=== PATIENT | male | born 1955 | race Caucasian/White ===

== ENCOUNTER 2018-10-21 15:31 | Observation (INO) | payer MEDICARE, OTHER | END 2018-10-23 09:45 | disposition home or self-care (01) | LOC: MED SURG 15:31 ==

== ENCOUNTER 2018-11-13 08:30 | Emergency (ER) | payer MEDICARE, OTHER ==
[2018-11-13] MEDS ORDERED: DUONEB 0.5-3 MG/3 ml Neb IH ONE ×2 (08:41→09:03)
--- NOTE | 2018-11-13 08:48 | ERPHSYRPT ---
- History of Present Illness Time Seen by Provider: 11/13/18 08:43 Source: patient Exam Limitations: no limitations Physician History: 63-year-old white male with history of small cell carcinoma of the lung, pancytopenia secondary to antibiotic plastic, chemotherapy and COPD. Patient arrives with complaint of shortness of breath associated with chest tightness worse with breathing symptoms since 6:30 this morning. He states he has not had any nausea sinus no fevers no vomiting. 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 Past surgical history includes facial reconstruction, splenectomy, scab wound to the left arm Social history patient states he drinks a fifth of alcohol a day He admits to tobacco use He denies illicit drug use Timing/Duration: today (66:30 AM) Activities at Onset: rest Severity of Dyspnea-Max: moderate Severity of Dyspnea-Current: moderate Possible Cause: occasional episodes Associated Symptoms: constant, cough (ooccasional cough), chest pain/discomfort (tightness in chest), wheezing, heart racing, tightness, No intermittent, No anxiety, No edema, No fever, No insomnia, No loss of appetite, No lightheadedness, No weakness, No ankle swelling, No chills, No hemoptysis, No calf pain, No dizziness, No heaviness, No lightheadedness, No leg swelling, No muscle spasms feet, No muscle spasms hands, No painful breathing, No productive cough, No sweating, No tingling face International travel in last 2 weeks: No Allergies/Adverse Reactions: No Known Drug Allergies Allergy (Unverified 10/21/18 16:44) Home Medications: Famotidine [Pepcid] 40 mg PO [id number] PRN 10/21/18 [History] Olanzapine 5 mg PO DAILY 10/21/18 [History] Potassium Chloride 10 Meq Tab* [Klor Con 10 MEQ] 20 meq PO DAILY 10/21/18 [ History] - Review of Systems Constitutional: No Fever, No Chills Eyes: No Symptoms Ears, Nose, & Throat: No Symptoms Respiratory: Cough, Dyspnea, Wheezing Cardiac: Chest Pain Abdominal/Gastrointestinal: No Abdominal Pain, No Nausea, No Vomiting, No Diarrhea Genitourinary Symptoms: No Dysuria Musculoskeletal: No Back Pain, No Neck Pain Skin: No Rash Neurological: No Dizziness, No Focal Weakness, No Sensory Changes Psychological: No Symptoms Endocrine: No Symptoms All Other Systems: Reviewed and Negative - Past Medical History Pertinent Past Medical History: Yes Neurological History: No Pertinent History ENT History: No Pertinent History Cardiac History: No Pertinent History Respiratory History: COPD, Lung Cancer Endocrine Medical History: No Pertinent History Musculoskeletal History: Arthritis, Fractures, Osteoarthritis GI Medical History: Hernia History: No Pertinent History Psycho-Social History: Anxiety, Depression, Other Male Reproductive Disorders: No Pertinent History Other Medical History: PTSD - Past Surgical History Past Surgical History: Yes Neuro Surgical History: No Pertinent History Cardiac: No Pertinent History Respiratory: No Pertinent History Gastrointestinal: Other Genitourinary: No Pertinent History Musculoskeletal: Orthopedic Surgery Male Surgical History: No Pertinent History Other Surgical History: maxillofacial reconstruction; splenectomy; left arm surgery - Social History Smoking Status: Current every day smoker How long have you smoked: "40 years" Exposure to second hand smoke: Yes Drug Use: marijuana - Nursing Vital Signs Nursing Vital Signs: Initial Vital Signs Temperature 97.6 F 11/13/18 08:31 Pulse Rate 116 H 11/13/18 08:31 Respiratory Rate 20 11/13/18 08:31 Blood Pressure 134/108 11/13/18 08:31 O2 Sat by Pulse Oximetry 91 L 11/13/18 08:31 Pain Scale Pain Intensity 5 - Physical Exam General Appearance: mild distress, alert Eye Exam: PERRL/EOMI Ears, Nose, Throat Exam: hearing grossly normal, normal ENT inspection, normal pharynx, No abnormal TM (R), No abnormal TM (L), No sinus pain/drainage, No hearing decreased, No nasal congestion, No pharyngeal erythema, No tonsillar exudate, No tonsillar swelling Neck Exam: normal inspection, supple Respiratory Exam: diminished breath sounds, wheezing (few wheezes) Cardiovascular/Chest Exam: normal heart sounds, tachycardia Abdominal/Gastrointestinal Exam: soft, No tenderness, No distention, No mass Extremity Exam: non-tender, normal range of motion, normal inspection, no calf tenderness, no pedal edema Peripheral Pulses Exam: dorsalis-pedis (R): 2+, dorsalis-pedis (L): 2+ Neurologic Exam: alert, oriented x 3, cooperative, knitting tester II-XII nml as tested, sensation nml, No motor deficits Skin Exam: normal color, warm, No dry SpO2 Interpretation: normal - Course Nursing assessment & vital signs reviewed: Yes EKG Interpreted by Me: RATE (115 bpm), Sinus Tach, NORMAL AXIS, Other (EKG: Sinus tachycardia, 115 beats per minute, normal axis, no acute ST or T wave changes) - Radiology Exams Chest X-ray Interpretation: Discussed w/ radiologist (chest x-ray: Impression right mid to lower perihilar interstitial alveolar opacities presumed related to known carcinoma. Remaining heart and lungs unremarkable. Bony thorax intact.) - CT Exams Chest CT Interpretation: Discussed w/radiologist (cchest x-ray: Impression: 1. New tiny nonoccluding right lung pulmonary emboli. 2. Grossly stable right perihilar/infrahilar opacity is in right lower lobe masslike opacity presumed related to known small cell carcinoma. Slightly diminished right effusion), Tele-radiologist Report ( this is a 5 at that is), appendicitis Ordered Tests: Active Orders 24 hr Category Date Time Status EKG-ER Only STAT Care 11/13/18 08:35 Active IV Insertion STAT Care 11/13/18 08:35 Active Pulse Oximetry (ED) STAT Care 11/13/18 08:35 Active CHEST 1 VIEW (PORTABLE) Stat Exams 11/13/18 08:35 Completed CHEST WITH CONTRAST [CT] Stat Exams 11/13/18 09:33 Completed BLOOD CULTURE Stat Lab 11/13/18 08:57 Received CBC W DIFF Stat Lab 11/13/18 08:45 Completed CMP Stat Lab 11/13/18 08:45 Completed CULTURE,SPUTUM Stat Lab 11/13/18 08:41 Uncollected D-DIMER QUANTITATION Stat Lab 11/13/18 08:45 Completed Lactic Acid Stat Lab 11/13/18 08:41 Completed Manual Differential NC Stat Lab 11/13/18 08:45 Completed NT PRO BNP Stat Lab 11/13/18 08:45 Completed PROTIME WITH INR Stat Lab 11/13/18 08:45 Completed PTT Stat Lab 11/13/18 08:45 Completed TROPONIN Q3H Lab 11/13/18 08:45 Completed TROPONIN Q3H Lab 11/13/18 11:45 Ordered TROPONIN Q3H Lab 11/13/18 14:45 Ordered TROPONIN Q3H Lab 11/13/18 17:45 Ordered TROPONIN Q3H Lab 11/13/18 20:45 Ordered VENOUS BLOOD GAS Stat Lab 11/13/18 08:41 Completed Peak Expiratory Flow Rate ONCE RT 11/13/18 09:10 Completed Respiratory Therapy Assessment DAILY RT 11/13/18 09:09 Completed Medication Summary Generic Name Dose Route Start Last Admin Trade Name Freq PRN Reason Stop Dose Admin Sodium Chloride 1,000 mls @ 100 mls/hr 11/13/18 09:00 11/13/18 08:56 Sodium Chloride 0.9% 1000 Ml IV 12/13/18 08:59 100 mls/hr .Q10H YOKO Administration Ceftriaxone Sodium/Dextrose 1 g in 50 mls @ 100 mls/hr 11/13/18 10:55 11:01 Rocephin 1 Gm-D5w 50 Ml Bag IV 11/13/18 11:24 100 mls/hr STAT STA 100 mls/hr Administration Discontinued Medications Generic Name Dose Route Start Last Admin Trade Name Freq PRN Reason Stop Dose Admin Albuterol/Ipratropium 3 ml 11/13/18 08:41 11/13/18 09:08 Duoneb 0.5-3 Mg/3 Ml Neb IH 11/13/18 08:42 3 ml STAT ONE Administration Albuterol/Ipratropium Confirm 11/13/18 09:03 Duoneb 0.5-3 Mg/3 Ml Neb Administered 11/13/18 09:04 Dose 3 ml IH .STK-MED ONE Aspirin 324 mg 11/13/18 09:32 11/13/18 09:40 Baby Aspirin 81 Mg Chew PO 11/13/18 09:33 324 mg STAT ONE Administration Aspirin Confirm 11/13/18 09:40 Baby Aspirin 81 Mg Chew Administered 11/13/18 09:41 Dose 324 mg .ROUTE .STK-MED ONE Ceftriaxone Sodium/Dextrose Confirm 11/13/18 10:57 Rocephin 1 Gm-D5w 50 Ml Bag Administered 11/13/18 10:58 Dose 1 g in 50 mls @ ud IV .STK-MED ONE Lab/Rad Data: Laboratory Result Diagrams 11/13/18 08:45 11/13/18 08:45 Laboratory Results 11/13/18 11/13/18 11/13/18 Range/Units 08:45 08:45 08:45 WBC (4.0-10.5) K/mm3 RBC (4.1-5.6) M/mm3 Hgb (12.5-18.0) gm/dl Hct (42-50) % MCV (78-100) fl MCH (26-32) pg MCHC (32-36) g/dl RDW (11.5-14.0) % Plt Count (150-450) K/mm3 MPV (6-9.5) fl Segmented Neutrophils (36.-66.) % Lymphocytes (Manual) (24-44) % Monocytes (Manual) (0.0-12.0) % Atypical Lymphocytes % Platelet Estimate (NORMAL) RBC Morphology Polychromasia Poikilocytosis Anisocytosis Garcia-Cos Cob Bodies PT 12.7 (8.83-12.87) SECONDS INR 1.12 (0.8-3.0) APTT 33.8 (24.1-36.1) SECONDS D-Dimer 6815 H* (215-500) ng/mL pO2/FiO2 Ratio % VBG pH (7.32-7.42) VBG pCO2 at Pat Temp (42-55) mm/Hg VBG pO2 at Pat Temp (25-40) mm/Hg VBG HCO3 (22-28) meq/L VBG O2 Sat (Joselin) (95-100) VBG Base Excess (-2.0-2.0) VBG Hemoglobin VBG Carboxyhemoglobin (0.0-6.9) % T HGB POC Potassium (3.5-5.1) Sodium 126 L (137-145) mmol/L Potassium 3.2 L (3.5-5.1) mmol/L Chloride 86 L (98-107) mmol/L Carbon Dioxide 28 (22-30) mmol/L Anion Gap 15.8 H (5-15) MEQ/L BUN 11 (9-20) mg/dL Creatinine 0.73 (0.66-1.25) mg/dL Estimated GFR > 60.0 ML/MIN Glucose 113 H (74-106) mg/dL Lactic Acid (0.4-2.0) Calcium 9.3 (8.4-10.2) mg/dL Total Bilirubin 1.50 H (0.2-1.3) mg/dL AST 70 H (17-59) U/L ALT 26 (0-50) U/L Alkaline Phosphatase 128 H (38-126) U/L Troponin I 0.090 H* (0.000-0.034) ng/mL NT-Pro-B Natriuret Pep 915 H (0-900) pg/mL Serum Total Protein 7.5 (6.3-8.2) g/dL Albumin 3.9 (3.5-5.0) g/dL 11/13/18 11/13/18 Range/Units 08:45 08:41 WBC 9.2 (4.0-10.5) K/mm3 RBC 3.23 L (4.1-5.6) M/mm3 Hgb 13.1 (12.5-18.0) gm/dl Hct 35.3 L (42-50) % MCV 109.3 H (78-100) fl MCH 40.5 H (26-32) pg MCHC 37.1 H (32-36) g/dl RDW 14.9 H (11.5-14.0) % Plt Count 175 (150-450) K/mm3 MPV 10.7 H (6-9.5) fl Segmented Neutrophils 80 H (36.-66.) % Lymphocytes (Manual) 11 L (24-44) % Monocytes (Manual) 7 (0.0-12.0) % Atypical Lymphocytes 2 % Platelet Estimate NORMAL (NORMAL) RBC Morphology ABNORMAL Polychromasia 1+ Poikilocytosis 1+ Anisocytosis 1+ Garcia-Cos Cob Bodies 1+ PT (8.83-12.87) SECONDS INR (0.8-3.0) APTT (24.1-36.1) SECONDS D-Dimer (215-500) ng/mL pO2/FiO2 Ratio 28.0 % VBG pH 7.56 H* (7.32-7.42) VBG pCO2 at Pat Temp 31 L (42-55) mm/Hg VBG pO2 at Pat Temp 71 H (25-40) mm/Hg VBG HCO3 27.8 (22-28) meq/L VBG O2 Sat (Joselin) 98.4 (95-100) VBG Base Excess 5.9 H (-2.0-2.0) VBG Hemoglobin 13.2 VBG Carboxyhemoglobin 4.8 (0.0-6.9) % T HGB POC Potassium 3.3 L (3.5-5.1) Sodium (137-145) mmol/L Potassium (3.5-5.1) mmol/L Chloride (98-107) mmol/L Carbon Dioxide (22-30) mmol/L Anion Gap (5-15) MEQ/L BUN (9-20) mg/dL Creatinine (0.66-1.25) mg/dL Estimated GFR ML/MIN Glucose (74-106) mg/dL Lactic Acid 1.6 (0.4-2.0) Calcium (8.4-10.2) mg/dL Total Bilirubin (0.2-1.3) mg/dL AST (17-59) U/L ALT (0-50) U/L Alkaline Phosphatase (38-126) U/L Troponin I (0.000-0.034) ng/mL NT-Pro-B Natriuret Pep (0-900) pg/mL Serum Total Protein (6.3-8.2) g/dL Albumin (3.5-5.0) g/dL - Progress Progress: improved Air Movement: fair Progress Note: 11/13/18 11:10 The patient is noted to have of a tiny pulmonary emboli is in the subsegmental branches of the right upper middle and lower lobe of the lung, patient was grossly stable right perihilar/painful hilar opacities and right lower lobe masslike opacity presumed related to known small cell carcinoma with a slightly diminished right effusion patient also had a d-dimer of 6815, he had a troponin of 0.090, BNP of 9:15 Patient was given a DuoNeb treatment he is being given aspirin 324 mg IV he is being given Rocephin 1 g IV. He had received normal saline at 100 mL per hour he is feeling better. I discussed the patient's case with Dr. Dalton patient does have a pulmonary embolism as well as elevated troponin. He did have a known history of small cell carcinoma. Dr. Dalton and recommended that I transfer patient to [facility], I have discussed the case with Hue who is qualified to viral except patient at [facility] I discussed it with her she states the patient will be auto accepted we did discuss possibly giving the patient Lovenox prior to transfer she will discuss this with the accepting physician at [facility]. She did ask that we did not transfer patient until she calls back with an accepting physician. Impression 1 chest pain 2 shortness of breath 3, COPD 4, pulmonary embolism 5, elevated troponin, 6 small cell carcinoma of the lung. - Departure Departure Disposition: Transfer (iis no) Clinical Impression: Shortness of breath, Elevated troponin, Small cell carcinoma Chest pain Qualifiers: Chest pain type: unspecified Qualified Code(s): R07.9 - Chest pain, unspecified Pulmonary embolism Qualifiers: Pulmonary embolism type: unspecified Chronicity: acute Acute cor pulmonale presence: without acute cor pulmonale Qualified Code(s): I26.99 - Other pulmonary embolism without acute cor pulmonale Condition: Fair Critical Care Time: No Referrals: RONAK DALTON MD [Primary Care Provider] -
[2018-11-13] MEDS ORDERED: Sodium Chloride 0.9% 1000 ML 1,000 ML ONE (08:52)
--- NOTE | 2018-11-13 08:58 | XRAY ---
Indication: Short of breath. Small cell lung carcinoma. Comparison: CT chest October 21, 2018 Portable chest again demonstrates right mid to lower perihilar interstitial alveolar opacities presumed related to known carcinoma. Remaining heart and lungs unremarkable. Bony thorax intact.
[2018-11-13 09:00] LABS: Hematocrit 35.3 % (42-50); Hemoglobin 13.1 gm/dl (12.5-18.0); Mean Cell Volume 109.3 fl (78-100); Mean Corpuscular Hgb Concent. 37.1 g/dl (32-36); Mean Platelet Volume 10.7 fl (6-9.5); Platelet Count 175 K/mm3 (150-450); Red Blood Count 3.23 M/mm3 (4.1-5.6); Red Cell Distribution Width 14.9 % (11.5-14.0); White Blood Count 9.2 K/mm3 (4.0-10.5)
[2018-11-13] MEDS ORDERED: Sodium Chloride 0.9% 1000 ML 1,000 ML IV SCH (09:00)
[2018-11-13 09:01] LABS: Lactic Acid 1.6 (0.4-2.0); VBG BASE EXCESS 5.9 (-2.0-2.0); VBG CARBOXYHEMOGLOBIN 4.8 % T HGB (0.0-6.9); VBG HCO3- 27.8 meq/L (22-28); VBG HEMOGLOBIN 13.2; VBG O2 SATURATION 98.4 (95-100); VBG POTASSIUM 3.3 (3.5-5.1); VBG pH 7.56 (7.32-7.42)
[2018-11-13 09:04] LABS: Mean Corpuscular Hemoglobin 40.5 pg (26-32)
[2018-11-13 09:11] LABS: INR 1.12 (0.8-3.0); PROTIME 12.7 SECONDS (8.83-12.87)
[2018-11-13 09:14] LABS: PTT 33.8 SECONDS (24.1-36.1)
[2018-11-13 09:25] LABS: ALBUMIN 3.9 g/dL (3.5-5.0); ALKALINE PHOSPHATASE 128 U/L (38-126); ANION GAP 15.8 MEQ/L (5-15); BLOOD UREA NITROGEN 11 mg/dL (9-20); CHLORIDE 86 mmol/L (98-107); Calcium 9.3 mg/dL (8.4-10.2); Carbon Dioxide 28 mmol/L (22-30); Creatinine 1 0.73 mg/dL (0.66-1.25); Glucose 113 mg/dL (74-106); NT PRO BNP 915 pg/mL (0-900); Potassium 3.2 mmol/L (3.5-5.1); SGOT/AST 70 U/L (17-59); SGPT/ALT 26 U/L (0-50); SODIUM 126 mmol/L (137-145); Total Protein 7.5 g/dL (6.3-8.2)
[2018-11-13] MEDS ORDERED: BABY ASPIRIN 81 MG CHEW PO ONE (09:32)
[2018-11-13] MEDS ORDERED: BABY ASPIRIN 81 MG CHEW ONE (09:40)
[2018-11-13 10:02] LABS: ATYPICAL LYMPHS 2 %; Lymphocytes 11 % (24-44); Monocyte 7 % (0.0-12.0); Neutrophils 80 % (36.-66.); Total Cells Counted 100
[2018-11-13 10:04] LABS: Howell-Jolly Bodies 1+; Polychromasia 1+
[2018-11-13 10:05] LABS: ANISOCYTOSIS 1+; Platelet Estimate NORMAL (NORMAL); Poikilocytosis 1+
[2018-11-13 10:40] VITALS: BP 142/89
--- NOTE | 2018-11-13 10:51 | XRAY ---
Indication: Chest pressure, short of breath, tachycardia, and elevated d-dimer. History small cell carcinoma. Multiple contiguous axial images obtained through the chest using 80 cc Isovue 370 contrast and PE protocol. Comparison: October 21, 2018. There is good opacification of the pulmonary arteries to include the lobar and segmental branches. However mild respiration artifact limits evaluation of the more distal branches. New tiny nonoccluding pulmonary emboli in the distal segmental branches of the right upper, right middle, and right lower lobes. Heart is not enlarged. Aorta remains normal in course and caliber. Again no pathologic mediastinal lymphadenopathy. Stable right hilar/infrahilar irregular opacities again either soft tissue mass versus atelectasis versus combination. Examination of the lung parenchyma demonstrates grossly stable right lower lobe irregular interstitial alveolar opacities. Also grossly stable posterior right lower lobe noncalcified masslike opacity presumed known malignancy. Small right effusion minimally improved. Previous left lung airspace opacities improved with minimal residual in the upper lobe. No left effusion. Bony thorax again demonstrates mild degenerative changes throughout the spine/both shoulders and old right 9/10 rib fractures. No suspicious bony lesions. Limited upper abdomen including adrenal glands unremarkable. Impression: 1. New tiny nonoccluding right lung pulmonary emboli as detailed. 2. Grossly stable right perihilar/infrahilar opacities and right lower lobe masslike opacity presumed related to known small cell carcinoma. Slightly diminished right effusion. CT DI 13.33
[2018-11-13] MEDS ORDERED: ROCEPHIN 1 Gm-D5w 50 ml Bag** 1 G/50 ML IVPB IV STA (10:55)
[2018-11-13] MEDS ORDERED: ROCEPHIN 1 Gm-D5w 50 ml Bag** 1 G/50 ML IVPB IV ONE (10:57)
[2018-11-13] MEDS ORDERED: ENOXAPARIN SODIUM SQ STA (11:18)
[2018-11-13] MEDS ORDERED: ENOXAPARIN SODIUM SQ ONE (11:19)
[2018-11-13 11:46] VITALS: PULSE 96; O2SAT 97
== END 2018-11-13 11:48 | disposition short-term general hospital (02) ==
LOC: ED 08:30
DX: R06.02 Shortness of breath (principal); R07.9 Chest pain, unspecified; R74.8 Abnormal levels of other serum enzymes; I26.99 Other pulmonary embolism without acute cor pulmonale; C34.90 Malignant neoplasm of unspecified part of unspecified bronchus or lung; J44.9 Chronic obstructive pulmonary disease, unspecified
CPT/HCPCS: 36000; 36415; 71045; 71260; 80053; 82805; 83605; 83880; 84484; 85025; 85379; 85610; 85730; 87040; 93005; 94150; 94640; 94760; 96360; 96361; 96365; 96372; 99285; J0696; J1650; A9270-GY